=== PATIENT | male | born 1945 | race Caucasian/White ===

== ENCOUNTER 2016-03-07 23:49 | Emergency (ER) | payer BC ==
[2016-03-07] MEDS ORDERED: OPTIRAY 350 100 ML VIAL HMH IV ONE (23:50)
[2016-03-08] MEDS ORDERED: DUONEB INH ONE (02:08)
[2016-03-08] MEDS ORDERED: METHYLPRED SOD SUCC 125 MG/2 ML VIAL ONE (02:14)
[2016-03-08] MEDS ORDERED: CEFTRIAXONE 1 GM VIAL ONE (03:51)
[2016-03-08] MEDS ORDERED: SODIUM CHLORIDE 0.9% 100 ML IV ONE (03:51)
== END 2016-03-08 04:21 | disposition home or self-care (01) ==
LOC: ER 23:49
CPT/HCPCS: 71020 ×2; 71260 ×2; 93005 ×2; 94640 ×2; 96365 ×2; 96375 ×2; 99284; J0696; J2930; Q9967